=== PATIENT | male | born 1950 | race Caucasian/White ===

== ENCOUNTER → 2018-09-12 08:19 | Outpatient (CLI) | payer MEDICARE | END | disposition home or self-care (01) | LOC: D.CT 08:19 | PROVIDERS: Internal Medicine Gastroenterology | DX: R11.0 Nausea (principal); R63.4 Abnormal weight loss; J44.9 Chronic obstructive pulmonary disease, unspecified; R12 Heartburn ==

== ENCOUNTER 2019-01-11 09:15 | Inpatient (IN) | payer OTHER, MEDICARE ==
[2019-01-11] VITALS (7 sets, daily range): BP systolic 78–134; BP diastolic 41–76; BMI 21.4; BMI 21.5
[2019-01-11] MEDS ORDERED: LIPITOR80 MG PO (09:29)
[2019-01-11] MEDS ORDERED: ALBUTEROL SULF8.5 GM INH (09:29)
[2019-01-11] MEDS ORDERED: WELLBUTRIN SR150 MG PO (09:30)
[2019-01-11] MEDS ORDERED: SYMBICORT 16010.2 GM INH (09:30)
[2019-01-11] MEDS ORDERED: DEPAKOTE ER500 MG PO (09:31)
[2019-01-11] MEDS ORDERED: LISINOPRIL5 MG PO (09:31)
[2019-01-11] MEDS ORDERED: TRICOR145 MG PO (09:31)
[2019-01-11] MEDS ORDERED: FLOMAX0.4 MG PO (09:32)
[2019-01-11] MEDS ORDERED: NIASPAN500 MG PO (09:32)
[2019-01-11] MEDS ORDERED: MIRALAX17 GM PO (09:32)
[2019-01-11] MEDS ORDERED: ASPIRIN325 MG PO (09:33)
[2019-01-11] MEDS ORDERED: TRAZODONE HCL150 MG PO (09:33)
[2019-01-11] MEDS ORDERED: FERROUS SULFAT325 MG PO (09:34)
[2019-01-11] MEDS ORDERED: SOMA350 MG PO (09:34)
[2019-01-11 09:47] LABS: APPEARANCE CLEAR (CLEAR); BILIRUBIN NEGATIVE (NEGATIVE); COLOR YELLOW (YELLOW); GLUCOSE NEGATIVE (NEGATIVE); KETONE NEGATIVE (NEGATIVE); NITRITE NEGATIVE (NEGATIVE); PROTEIN NEGATIVE (NEGATIVE); UROBILINOGEN NORMAL (NORMAL)
[2019-01-11 09:50] LABS: BASOPHILS 0.6 % (0-2); EOSINOPHILS 4.7 % (0-7); HEMATOCRIT 37.8 % (42.0-54.0); HEMOGLOBIN 12.7 g/dL (13.5-17.5); IMMATURE GRANULOCYTES 0.4 % (0-5); LYMPHOCYTES 32.5 % (15-50); MCHC 33.6 g/dL (31.0-37.0); MCV 89.4 fL (80.0-100.0); MEAN PLATELET VOLUME 9.9 fL (7.4-10.4); MONOCYTES 8.4 % (2-11); NEUTROPHILS 53.4 % (40-80); PLATELET COUNT 276 10x3/uL (130-400); RBC 4.23 10x6/uL (4.20-6.10); RDW 14.1 % (11.5-14.5)
[2019-01-11 10:08] LABS: APTT 28.4 SECONDS (22.8-39.4); INR 1.08 (0.85-1.17); PROTIME 13.5 SECONDS (11.6-15.0)
[2019-01-11 10:14] LABS: ALBUMIN 2.6 g/dL (3.4-5.0); ALKALINE PHOSPHATASE 57 U/L (46-116); ALT (SGPT) 24 U/L (10-68); BILIRUBIN - TOTAL 0.23 mg/dL (0.2-1.3); CALC OSMOLALITY 259 mosm/kg (275-300); CALCIUM 8.5 mg/dL (8.5-10.1); CARBON DIOXIDE 25.7 mmol/L (21.0-32.0); CHLORIDE - SERUM 96 mmol/L (98-107); CREATININE - SERUM 0.8 mg/dL (0.6-1.3); GLUCOSE 159 mg/dL (74-106); PROTEIN - SERUM 7.8 g/dL (6.4-8.2); SODIUM 128 mmol/L (136-145); UREA NITROGEN 12 mg/dL (7-18); eGFR NON AFRICAN AMERICAN > 90 mL/min (90-120)
--- NOTE | 2019-01-11 10:16 | NUR ---
PT PRESENTS TO ER VIA PRIVATE VEHICLE WITH AND GRANDSON - PT REPORTS GRADUAL DECLINE IN FUNCTION OVER THE LAST TWO WEEKS. SHE STATES, "THIS MORNING HE WOKE UP AND HIS RIGHT EYE WAS BLACK AND HE JUST DIDN'T SEEM LIKE HIMSELF. HE WAS VERY CONFUSED." PT IS UNABLE TO REPORT LAST KNOWN WELL TIME. ON ASSESSMENT PT PUPILS ARE SLUGGISH AT 2MM BILATERALLY EQUAL - PT IS AN AKA TO LEFT LEG - NO DRIFT NOTED TO BILATERAL UPPER OR LOWER EXTREMITIES - PT IS AAOX4 - FAMILY AT BEDSIDE
[2019-01-11 10:18] LABS: TROPONIN-I < 0.017 ng/mL (0.000-0.060)
--- NOTE | 2019-01-11 11:47 | NUR ---
[facility] BE [facility]ITTED TO [facility] FACILITY DUE TO [facility]IL [facility]. SARA BEASLEY RN, CCM
--- NOTE | 2019-01-11 12:39 | NUR ---
pt hypotensive. Arouses to verbal stimuli - pt sat upright in high fowlers position - remains hypotensive - reported to dr kumar - verbal order received to bolus noraml saline - FSBS 93 @ 1229
--- NOTE | 2019-01-11 13:26 | NUR ---
NS bolus stopped at 1320
[2019-01-11] MEDS ORDERED: OMEPRAZOLE20 M1 PO (14:14)
--- NOTE | 2019-01-11 14:29 | MORECARE ---
CASE MANAGEMENT DISCHARGE SUMMARY PATIENT: GREG WITT W UNIT: [id number] ADM DATE: 01/11/19 AGE: 68 : 50 SEX: M ROOM/BED: D.1211 AUTHOR: DELMER UMAÑA PHYSICIAN: REFERRING PHYSICIAN: MICHEL VICK MD DATE OF SERVICE: 01/11/19 Discharge Plan Patient Name: GREG WITT Facility: [facility]:[place] : 1950 Planned Disposition: Home Anticipated Discharge Date: 01/15/19 Discharge Date: Expected LOS: 4 Initial Reviewer: [email or web address] Initial Review Date: 01/11/2019 Generated: 01/11/19 3:29 pm DCPIA - Discharge Planning Initial Assessment Updated by [email or web address]: tSephanie Rich on 01/11/19 2:25 pm * Is the patient Alert and Oriented? No * How many steps to enter\exit or inside your home? none * [place] [facility] * Preadmission Environment Home with Family * ADLs Partial Dependent * Partial ADLs (Assistance needed) Bathing Dressing Medication Management Transfers * Equipment Glucometer Oxygen Power Chair or Electric Scooter * Other Equipment O2 with portability. Is wanting a different kind of portable O2. * List name and contact numbers for known caregivers / representatives who currently or will assist patient after discharge: Gloria Witt - - [phone] * Verbal permission to speak to the caregivers and representatives has been obtained from the patient. Yes * Community resources currently utilized None * Additional services required to return to the preadmission environment? Yes * Can the patient safely return to the preadmission environment? Yes * Has this patient been hospitalized within the prior 30 days at any hospital? No Patient Name: GREG WITT Page [id number] at 1429 All edits/amendments must be made on the electronic document DICTATION DATE: 01/11/191427 ELECTRONICS ENGINEERING MANAGER: ALEJANDRA 01/11/191427 RPT#: [id number] DC DATE: STATUS: ADM IN [address] [place] [address] END OF REPORT
--- NOTE | 2019-01-11 14:39 | MORECARE ---
CASE MANAGEMENT DISCHARGE SUMMARY PATIENT: GREG WITT UNIT: [id number] ADM DATE: 01/11/19 AGE: 68 : 50 SEX: M ROOM/BED: D.1211 AUTHOR: DELMER UMAÑA PHYSICIAN: REFERRING PHYSICIAN: MICHEL VICK MD DATE OF SERVICE: 01/11/19 Discharge Plan Patient Name: GREG WITT Facility: [facility]:[place] : 1950 Planned Disposition: Home Anticipated Discharge Date: 01/15/19 Discharge Date: Expected LOS: 4 Initial Reviewer: [email or web address] Initial Review Date: 01/11/2019 Generated: 01/11/19 3:39 pm DCP- Discharge Planning Updated by [email or web address]: Stephanie Rich on 01/11/19 1:[address] Patient Name: GREG WITT Admission Status: ER Accout number: [id number] Admission Date: 01-11-2019 : 1950 Admission Diagnosis: Attending: MICHEL VICK Current LOS: 1 Anticipated DC Date: 01-15-2019 Planned Disposition: Home Primary Insurance: MEDICARE A & B Discharge Planning Comments: CM met with patient and his , Gloria to complete initial dc planning assessment. CM educated them on the CM role and verbal consent given by patient to complete assessment. Patient with altered mental status so answered questions. CM verified patient's address, phone number, and emergency contact phone numbers. Patient lives at home with his who is his primary caregiver. Patient is bed/chair bound but was able to transfer himself from bed to chair. At discharge patient's is not sure what will be needed. She is hopeful he improves to where he can return home and feels this would be a safe discharge. CM discussed availability of home health, rehab services, and medical equipment. Patient's is unsure of what discharge needs he will have at this time. She did mention that she is wanting a different kind of portable oxygen when he is discharged. She is going to call [facility] to see exactly what she is wanting and let CM know. Patient's reports she will transport him home at time of discharge if he is able to return home. CM will continue to follow and will assist as needed with dc plans/needs. Division Chief: Stephanie Rich RN, [facility] DCPIA - Discharge Planning Initial Assessment Updated by [email or web address]: Stephanie Rich on 01/11/19 2:25 pm * Is the patient Alert and Oriented? No * How many steps to enter\exit or inside your home? none * [place] [facility] * P[place]mission Environment Home with Family * ADLs Partial Dependent * Partial ADLs (Assistance needed) Bathing Dressing Medication Management Transfers * Equipment Glucometer Oxygen Power Chair or Electric Scooter * Other Equipment O2 with portability. Is wanting a different kind of portable O2. * List name and contact numbers for known caregivers / representatives who currently or will assist patient after discharge: Gloria Witt - - [phone] * Verbal permission to speak to the caregivers and representatives has been obtained from the patient. Yes * Community resources currently utilized None * Additional services required to return to the preadmission environment? Yes * Can the patient safely return to the preadmission environment? Yes * Has this patient been hospitalized within the prior 30 days at any hospital? No Last DP export: 01/11/19 1:29 p Patient Name: GREG WITT Page [id number] at 1439 All edits/amendments must be made on the electronic document DICTATION DATE: 01/11/191438 SUPERVISOR CELL ROOM: ALEJANDRA 01/11/191438 RPT#: [id number] DC DATE: STATUS: ADM IN [facility] [address] [place] [address] END OF REPORT
[2019-01-11 16:32] LABS: CHOL - HDL RATIO 3.2 ratio (2.3-4.9); LDL-HDL RATIO 1.3 ratio (1.5-3.5)
--- NOTE | 2019-01-11 17:05 | NUR ---
Rehab Note- Acute Inpatient Rehab prescreen order received. The patient has an appropriate acute inpatient rehab Dx, continues to have an acute work up. Will follow at this time. Thank you for this referral! Carrie Connors RN Clinical Liaison, [facility] Rehab
--- NOTE | 2019-01-11 20:01 | NUR ---
EVENING ROUNDS MADE. PT LAYING IN BED. DENIES NEEDS AT THIS TIME. BREATHING EVEN AND UNLABORED. FALL PRECAUTIONS IN PLACE. WILL CTM.
--- NOTE | 2019-01-11 20:02 | NUR ---
PT GETTING US IN AT THIS TIME.
--- NOTE | 2019-01-11 20:51 | NUR ---
PT CL LIGHT ON. UPON ENTERING PT ROOM PT IV TO L WRIST OUT, TIP INTACT. CLEANED PT UP, WILL ATTEMPT TO RESITE IV. NO FURTHER CONCNERS AT THIS TIME. WILL CTM.
--- NOTE | 2019-01-11 21:02 | NUR ---
VITALS STABLE. PT TOOK MEDS WHOLE WITHOUT DIFFICULTY. NO FURTHER CONCERNS OR COMPLAINTS AT THIS TIME. WILL CTM.
[2019-01-11 23:08] LABS: APPEARANCE CLEAR (CLEAR); BILIRUBIN NEGATIVE (NEGATIVE); COLOR YELLOW (YELLOW); GLUCOSE NEGATIVE (NEGATIVE); KETONE NEGATIVE (NEGATIVE); NITRITE NEGATIVE (NEGATIVE); PROTEIN NEGATIVE (NEGATIVE); UROBILINOGEN NORMAL (NORMAL)
[2019-01-11 23:15] LABS: UDS - AMPHET NEGATIVE QUAL (NEGATIVE); UDS - BARB NEGATIVE QUAL (NEGATIVE); UDS - BENZO NEGATIVE QUAL (NEGATIVE); UDS - COCAINE NEGATIVE QUAL (NEGATIVE); UDS - OPIATE NEGATIVE QUAL (NEGATIVE); UDS - PCP NEGATIVE QUAL (NEGATIVE); UDS - THC POSITIVE QUAL (NEGATIVE)
--- NOTE | 2019-01-12 03:06 | NUR ---
PT LAYING IN BED RESTING COMFORTABLY AT THIS TIME. DENIES FURTHER NEEDS. BREATHING EVEN AND UNLABORED. 2L 02 VIA NC. NO FURTHER NEEDS, FALL PRECAUTIONS IN PLACE. BED LOWERED AND LOCKED. CL IN REACH. WILL CTM.
--- NOTE | 2019-01-12 05:34 | NUR ---
I AGREE WITH SHEAR TENDER ASSESSMENT.
[2019-01-12 05:42] VITALS: BP 132/97
[2019-01-12 06:39] LABS: ALBUMIN 2.6 g/dL (3.4-5.0); ALKALINE PHOSPHATASE 48 U/L (46-116); ALT (SGPT) 20 U/L (10-68); BILIRUBIN - TOTAL 0.27 mg/dL (0.2-1.3); CALC OSMOLALITY 251 mosm/kg (275-300); CALCIUM 8.2 mg/dL (8.5-10.1); CARBON DIOXIDE 24.7 mmol/L (21.0-32.0); CHLORIDE - SERUM 96 mmol/L (98-107); CREATININE - SERUM 0.9 mg/dL (0.6-1.3); MAGNESIUM - SERUM 1.7 mg/dL (1.8-2.4); PROTEIN - SERUM 7.3 g/dL (6.4-8.2); SODIUM 126 mmol/L (136-145); UREA NITROGEN 10 mg/dL (7-18); eGFR NON AFRICAN AMERICAN 89 mL/min (90-120)
[2019-01-12 06:46] LABS: GLUCOSE 90 mg/dL (74-106)
--- NOTE | 2019-01-12 07:45 | NUR ---
REC'D IN BED AWAKE AND ALERT. RESP EVEN AND UNLABORED WITH NO DISTRESS NOTED. CAN EXPRESS NEEDS AND WANTS. DENIES ANY PAIN OR DISCOMFORT. ASSESSMENT COMPLETD. C/L IN REACH AT BEDSIDE.
[2019-01-12 07:48] LABS: BASOPHILS 0.5 % (0-2); EOSINOPHILS 9.2 % (0-7); HEMATOCRIT 36.3 % (42.0-54.0); HEMOGLOBIN 12.1 g/dL (13.5-17.5); IMMATURE GRANULOCYTES 0.4 % (0-5); LYMPHOCYTES 34.6 % (15-50); MCH 29.4 pg (26.0-34.0); MCHC 33.3 g/dL (31.0-37.0); MCV 88.3 fL (80.0-100.0); MEAN PLATELET VOLUME 10.2 fL (7.4-10.4); NEUTROPHILS 46.3 % (40-80); PLATELET COUNT 277 10x3/uL (130-400); RBC 4.11 10x6/uL (4.20-6.10); RDW 13.9 % (11.5-14.5); WBC 5.7 10x3/uL (4.8-10.8)
--- NOTE | 2019-01-12 10:40 | MORECARE ---
CASE MANAGEMENT DISCHARGE SUMMARY PATIENT: GREG WITT UNIT: [id number] ADM DATE: 01/11/19 AGE: 68 : 50 SEX: M ROOM/BED: D.1211 AUTHOR: DELMER UMAÑA PHYSICIAN: REFERRING PHYSICIAN: MICHEL VICK MD DATE OF SERVICE: 01/12/19 Discharge Plan Patient Name: GREG WITT Facility: [facility]:[place] : 1950 Planned Disposition: Home Anticipated Discharge Date: 01/15/19 Discharge Date: Expected LOS: 4 Initial Reviewer: [email or web address] Initial Review Date: 01/11/2019 Generated: 01/12/19 11:39 am Comments DCP- Discharge Planning Updated by [email or web address]: Isabell Restrepo on 01/12/19 9:[address] SPEECH EVAL, PHYSICAL THERAPY EVAL, OT EVAL HAVE BEEN COMPLETED. RECOMMENDATION VARIES. PREFERS REHAB. PATIENT DESIRES HOME. RECENT HX OF FALLS ON TRANSFERS AT HOME. REHAB PRESCREEN PENDING. OT RECOMMENDS -REHAB PHYSICAL THERAPY RECOMMENDS HOME. AWIT REHAB SCREEN. DCP- Discharge Planning Updated by [email or web address]: Stephanie Rich on 01/11/19 1:[address] Patient Name: GREG WITT Admission Status: ER Accout number: [id number] Admission Date: 01-11-2019 : 1950 Admission Diagnosis: Attending: MICHEL VICK Current LOS: 1 Anticipated DC Date: 01-15-2019 Planned Disposition: Home Primary Insurance: MEDICARE A & B Discharge Planning Comments: CM met with patient and his , Gloria to complete initial dc planning assessment. CM educated them on the CM role and verbal consent given by patient to complete assessment. Patient with altered mental status so answered questions. CM verified patient's address, phone number, and emergency contact phone numbers. Patient lives at home with his who is his primary caregiver. Patient is bed/chair bound but was able to transfer himself from bed to chair. At discharge patient's is not sure what will be needed. She is hopeful he improves to where he can return home and feels this would be a safe discharge. CM discussed availability of home health, rehab services, and medical equipment. Patient's is unsure of what discharge needs he will have at this time. She did mention that she is wanting a different kind of portable oxygen when he is discharged. She is going to call [facility] to see exactly what she is wanting and let CM know. Patient's reports she will transport him home at time of discharge if he is able to return home. CM will continue to follow and will assist as needed with dc plans/needs. Casting Molder: Stephanie Rich RN, [facility] DCPIA - Discharge Planning Initial Assessment Updated by [email or web address]: Stephanie Rich on 01/11/19 2:25 pm * Is the patient Alert and Oriented? No * How many steps to enter\exit or inside your home? none * [place]CP [place] [facility] [place] [facility] * Preadmission Environment Home with Family * ADLs Partial Dependent * Partial ADLs (Assistance needed) Bathing Dressing Medication Management Transfers * Equipment Glucometer Oxygen Power Chair or Electric Scooter * Other Equipment O2 with portability. Is wanting a different kind of portable O2. * List name and contact numbers for known caregivers / representatives who currently or will assist patient after discharge: Gloria Witt - - [phone] * Verbal permission to speak to the caregivers and representatives has been obtained from the patient. Yes * Community resources currently utilized None * Additional services required to return to the preadmission environment? Yes * Can the patient safely return to the preadmission environment? Yes * Has this patient been hospitalized within the prior 30 days at any hospital? No Last DP export: 01/11/19 1:39 p Patient Name: GREG WITT Page [id number] at 1040 All edits/amendments must be made on the electronic document DICTATION DATE: 01/12/19 1039 HAIRSPRING TRUING INSPECTOR: ALEJANDRA 01/12/19 1039 RPT#: [id number] CT DATE: STATUS: ADM IN [facility] [address] [place] [address] END OF REPORT
--- NOTE | 2019-01-12 13:28 | NUR ---
Visited with patient today regarding the rehab referral. He meets criteria and will be accepted if he decides to come. He wants to discuss it with his before making a descision. Discussed with the CM Isabell Restrepo RN. Will accept today if patient and physician agree. Simona Cutler RN Clinical Liaison, Rehab
[2019-01-12] MEDS ORDERED: PLAVIX75 MG PO (17:07)
--- NOTE | 2019-01-12 17:16 | NUR ---
DC OSVALDO VOICE UNDERSTANDING OF DC INSTRUCTION FAMILY WAS AT BEDSIDE. STABLE CONDITION UPON DEPARTURE.
--- NOTE | 2019-01-12 17:50 | MORECARE ---
CASE MANAGEMENT DISCHARGE SUMMARY PATIENT: GREG WITT UNIT: [id number] ADM DATE: 01/11/19 AGE: 68 : 50 SEX: M ROOM/BED: D.1211 AUTHOR: DELMER UMAÑA PHYSICIAN: REFERRING PHYSICIAN: MICHEL VICK MD DATE OF SERVICE: 01/12/19 Discharge Plan Patient Name: GREG WITT Facility: [facility]:[place] : 1950 Planned Disposition: Home Anticipated Discharge Date: 01/15/19 Discharge Date: 01/12/2019 Expected LOS: 4 Initial Reviewer: [email or web address] Initial Review Date: 01/11/2019 Generated: 01/12/19 6:50 pm Comments DCP- Discharge Planning Updated by [email or web address]: Isabell Restrepo on 01/12/19 9:[address] SPEECH EVAL, PHYSICAL THERAPY EVAL, OT EVAL HAVE BEEN COMPLETED. RECOMMENDATION VARIES. PREFERS REHAB. PATIENT DESIRES HOME. RECENT HX OF FALLS ON TRANSFERS AT HOME. REHAB PRESCREEN PENDING. OT RECOMMENDS -REHAB PHYSICAL THERAPY RECOMMENDS HOME. AWIT REHAB SCREEN. DCP- Discharge Planning Updated by [email or web address]: Stephanie Rich on 01/11/19 1:[address] Patient Name: GREG WITT Admission Status: ER Accout number: [id number] Admission Date: 01-11-2019 : 1950 Admission Diagnosis: Attending: MICHEL VICK Current LOS: 1 Anticipated DC Date: 01-15-2019 Planned Disposition: Home Primary Insurance: MEDICARE A & B Discharge Planning Comments: CM met with patient and his , Gloria to complete initial dc planning assessment. CM educated them on the CM role and verbal consent given by patient to complete assessment. Patient with altered mental status so answered questions. CM verified patient's address, phone number, and emergency contact phone numbers. Patient lives at home with his who is his primary caregiver. Patient is bed/chair bound but was able to transfer himself from bed to chair. At discharge patient's is not sure what will be needed. She is hopeful he improves to where he can return home and feels this would be a safe discharge. CM discussed availability of home health, rehab services, and medical equipment. Patient's is unsure of what discharge needs he will have at this time. She did mention that she is wanting a different kind of portable oxygen when he is discharged. She is going to call [facility] to see exactly what she is wanting and let CM know. Patient's reports she will transport him home at time of discharge if he is able to return home. CM will continue to follow and will assist as needed with dc plans/needs. Perch Mender: Stephanie Rich RN, [facility] DCPIA - Discharge Planning Initial Assessment Updated by [email or web address]: Stephanie Rich on 01/11/19 2:25 pm * Is the patient Alert and Oriented? No * How many steps to enter\exit or inside your home? none * [facility]CP [place] [facility] * [facility] * Preadmission Environment Home with Family * ADLs Partial Dependent * Partial ADLs (Assistance needed) Bathing Dressing Medication Management Transfers * Equipment Glucometer Oxygen Power Chair or Electric Scooter * Other Equipment O2 with portability. Is wanting a different kind of portable O2. * List name and contact numbers for known caregivers / representatives who currently or will assist patient after discharge: Gloria Witt - - [phone] * Verbal permission to speak to the caregivers and representatives has been obtained from the patient. Yes * Community resources currently utilized None * Additional services required to return to the preadmission environment? Yes * Can the patient safely return to the preadmission environment? Yes * Has this patient been hospitalized within the prior 30 days at any hospital? No Last DP export: 01/12/19 9:40 a Patient Name: GREG WITT Page [id number] at 1750 All edits/amendments must be made on the electronic document DICTATION DATE: 01/12/191749 ELEMENTARY SCHOOL BAND DIRECTOR: ALEJANDRA 01/12/19 175 RPT#: [id number] DC DATE:01/12/19 STATUS: DIS IN [facility] [address] [place] [address] END OF REPORT
--- NOTE | 2019-01-12 18:06 | MORECARE ---
CASE MANAGEMENT DISCHARGE SUMMARY PATIENT: GREG WITT UNIT: [id number] ADM DATE: 01/11/19 AGE: 68 : 50 SEX: M ROOM/BED: D.1211 AUTHOR: DELMER UMAÑA PHYSICIAN: REFERRING PHYSICIAN: MICHEL VICK MD DATE OF SERVICE: 01/12/19 Discharge Plan Patient Name: GREG WITT Facility: [facility]:[place] : 1950 Planned Disposition: Home Anticipated Discharge Date: 01/15/19 Discharge Date: 01/12/2019 Expected LOS: 4 Initial Reviewer: [email or web address] Initial Review Date: 01/11/2019 Generated: 01/12/19 7:05 pm Comments DCP- Discharge Planning Updated by [email or web address]: Isabell Restrepo on 01/12/19 4:[address] 1200 REHAB PRESCREEN WAS COMPLETED THIS PM BY NIKOLE OLMEDO AND ROBERTO. PATIENT WAS APPROPRIATE FOR ACUTE REHAB. HE WANTED TO DISCUSS WITH HIS . SPOKE WITH HIS WHEN SHE ARRIVE THIS PM. THEY DECIDED THEY DID NOT WANT REHAB. THE PRIMARY NURSE NOTIFIED REHAB. CM SPOKE WITH THE . SHE WANTS HIS SERVICES THRU THE [place]. SHE ALSO HAD ISSUE REGARDING HIS HOME OXYGEN THERAPY. SHE PLANS TO FOLLOW UP WITH DR MOHR. TC TO [facility]. SHE STATED SHE WOULD HAVE THE RESPIRATORY THERAPIST FOLLOW UP WITH THE FOR HER CONCERNS. TC TO DR MOHR OFFICE TO ADVISE OF ADMISSION AND DISCHARGE. SPOKE WITH [facility]. FAXED CLINICAL INFORMATION , DISCHARGE MEDS, IMAGING STUDIES, LABS H/P AND ER NOTE TO [phone]. TC TO [facility] TO OBTAIN IMAGING DISC. PAPERWORK PREPARED FOR [facility]. EXPLAINED TO TO TAKE DISC TO [facility] OFFICE WITH DISCHARGE SUMMARY. CM WILL FAX CLINICAL AND REQUEST FOR HOME HEALTH FOR PHYSICAL THERAPY. CM ALSO PROVIDED CONTACT PHONE NUMBER FOR PATIENT [employer] FOR ISSUES RELATED TO OXYGEN, HOME HEALTH AND REHAB SERVICES. DISC GIVEN TO THE . DISCHARGE PATIENT SUMMARY AND DISCHARGE MED LIST GIVEN TO THE . FAMILY IS PROVIDING TRANSPORTATION. PATIENT AND FAMILY ANXIOUS FOR DISCHARGE. DCP- Discharge Planning Updated by [email or web address]: Isabell Restrepo on 01/12/19 9:[address] SPEECH EVAL, PHYSICAL THERAPY EVAL, OT EVAL HAVE BEEN COMPLETED. RECOMMENDATION VARIES. PREFERS REHAB. PATIENT DESIRES HOME. RECENT HX OF FALLS ON TRANSFERS AT HOME. REHAB PRESCREEN PENDING. OT RECOMMENDS -REHAB PHYSICAL THERAPY RECOMMENDS HOME. AWIT REHAB SCREEN. DCP- Discharge Planning Updated by [id number]: Stephanie Rich on 01/11/19 1:[address] Patient Name: GREG WITT Admission Status: ER Accout number: [id number] Admission Date: 01-11-2019 : 1950 Admission Diagnosis: Attending: MICHEL VICK Current LOS: 1 Anticipated DC Date: 01-15-2019 Planned Disposition: Home Primary Insurance: MEDICARE A & B Discharge Planning Comments: CM met with patient and his , Gloria to complete initial dc planning assessment. CM educated them on the CM role and verbal consent given by patient to complete assessment. Patient with altered mental status so answered questions. CM verified patient's address, phone number, and emergency contact phone numbers. Patient lives at home with his who is his primary caregiver. Patient is bed/chair bound but was able to transfer himself from bed to chair. At discharge patient's is not sure what will be needed. She is hopeful he improves to where he can return home and feels this would be a safe discharge. CM discussed availability of home health, rehab services, and medical equipment. Patient's is unsure of what discharge needs he will have at this time. She did mention that she is wanting a different kind of portable oxygen when he is discharged. She is going to call [facility] to see exactly what she is wanting and let CM know. Patient's reports she will transport him home at time of discharge if he is able to return home. CM will continue to follow and will assist as needed with dc plans/needs. Jewelry Drilling Machine Operator: Stephanie Rich RN, [facility] DCPIA - Discharge Planning Initial Assessment Updated by [email or web address]: Stephanie Rich on 01/11/19 2:25 pm * Is the patient Alert and Oriented? No * How many steps to enter\exit or inside your home? none * PCP [place] * [facility] * Preadmission Environment Home with Family * ADLs Partial Dependent * Partial ADLs (Assistance needed) Bathing Dressing Medication Management Transfers * Equipment Glucometer Oxygen Power Chair or Electric Scooter * Other Equipment O2 with portability. Is wanting a different kind of portable O2. * List name and contact numbers for known caregivers / representatives who currently or will assist patient after discharge: Gloria Witt - - [phone] * Verbal permission to speak to the caregivers and representatives has been obtained from the patient. Yes * Community resources currently utilized None * Additional services required to return to the preadmission environment? Yes * Can the patient safely return to the preadmission environment? Yes * Has this patient been hospitalized within the prior 30 days at any hospital? No Last DP export: 01/12/19 4:50 p Patient Name: GREG WITT Page [id number] at 1806 All edits/amendments must be made on the electronic document DICTATION DATE: 01/12/191804 MINE EXPLORATION ENGINEER: ALEJANDRA 01/12/191804 RPT#: [id number] DC DATE:01/12/19 STATUS: DIS IN [facility] [address] [place] [address] END OF REPORT
--- NOTE | 2019-01-13 07:52 | MORECARE ---
CASE MANAGEMENT DISCHARGE SUMMARY PATIENT: GREG WITT UNIT: [id number] ADM DATE: 01/11/19 AGE: 68 : 50 SEX: M ROOM/BED: D.1211 AUTHOR: DELMER UMAÑA PHYSICIAN: REFERRING PHYSICIAN: MICHEL VICK MD DATE OF SERVICE: 01/13/19 Discharge Plan Patient Name: GREG WITT Facility: [facility]:[place] : 1950 Planned Disposition: Home Anticipated Discharge Date: 01/15/19 Discharge Date: 01/12/2019 Expected LOS: 4 Initial Reviewer: [email or web address] Initial Review Date: 01/11/2019 Generated: 01/13/19 8:51 am Comments DCP- Discharge Planning Updated by [email or web address]: Isabell Restrepo on 01/12/19 4:[address] 1200 REHAB PRESCREEN WAS COMPLETED THIS PM BY NIKOLE OLMEDO AND ROBERTO. PATIENT WAS APPROPRIATE FOR ACUTE REHAB. HE WANTED TO DISCUSS WITH HIS . SPOKE WITH HIS WHEN SHE ARRIVE THIS PM. THEY DECIDED THEY DID NOT WANT REHAB. THE PRIMARY NURSE NOTIFIED REHAB. CM SPOKE WITH THE . SHE WANTS HIS SERVICES THRU THE [place]. SHE ALSO HAD ISSUE REGARDING HIS HOME OXYGEN THERAPY. SHE PLANS TO FOLLOW UP WITH DR MOHR. TC TO [facility]. SHE STATED SHE WOULD HAVE THE RESPIRATORY THERAPIST FOLLOW UP WITH THE FOR HER CONCERNS. TC TO DR MOHR OFFICE TO ADVISE OF ADMISSION AND DISCHARGE. SPOKE WITH CHANDRAKANT. FAXED CLINICAL INFORMATION , DISCHARGE MEDS, IMAGING STUDIES, LABS H/P AND ER NOTE TO [phone]. TC TO [facility] IM[facility] TO OBTAIN IMAGING DISC. [facility] FOR [facility]. EXPLAINED TO TO TAKE DISC TO [facility] OFFICE WITH DISCHARGE SUMMARY. CM WILL FAX CLINICAL AND REQUEST FOR HOME HEALTH FOR PHYSICAL THERAPY. CM ALSO PROVIDED CONTACT PHONE NUMBER FOR PATIENT [employer] FOR ISSUES RELATED TO OXYGEN, HOME HEALTH AND REHAB SERVICES. DISC GIVEN TO THE . DISCHARGE PATIENT SUMMARY AND DISCHARGE MED LIST GIVEN TO THE . FAMILY IS PROVIDING TRANSPORTATION. PATIENT AND FAMILY ANXIOUS FOR DISCHARGE. DCP- Discharge Planning Updated by [email or web address]: Isabell Restrepo on 01/12/19 9:[address] SPEECH EVAL, PHYSICAL THERAPY EVAL, OT EVAL HAVE BEEN COMPLETED. RECOMMENDATION VARIES. PREFERS REHAB. PATIENT DESIRES HOME. RECENT HX OF FALLS ON TRANSFERS AT HOME. REHAB PRESCREEN PENDING. OT RECOMMENDS -REHAB PHYSICAL THERAPY RECOMMENDS HOME. AWIT REHAB SCREEN. DCP- Discharge Planning Updated by [id number]: Stephanie Rich on 01/11/19 1:[address] Patient Name: GREG WITT Admission Status: ER Accout number: [id number] Admission Date: 01-11-2019 : 1950 Admission Diagnosis: Attending: MICHEL VICK Current LOS: 1 Anticipated DC Date: 01-15-2019 Planned Disposition: Home Primary Insurance: MEDICARE A & B Discharge Planning Comments: CM met with patient and his , Gloria to complete initial dc planning assessment. CM educated them on the CM role and verbal consent given by patient to complete assessment. Patient with altered mental status so answered questions. CM verified patient's address, phone number, and emergency contact phone numbers. Patient lives at home with his who is his primary caregiver. Patient is bed/chair bound but was able to transfer himself from bed to chair. At discharge patient's is not sure what will be needed. She is hopeful he improves to where he can return home and feels this would be a safe discharge. CM discussed availability of home health, rehab services, and medical equipment. Patient's is unsure of what discharge needs he will have at this time. She did mention that she is wanting a different kind of portable oxygen when he is discharged. She is going to call [facility] to see exactly what she is wanting and let CM know. Patient's reports she will transport him home at time of discharge if he is able to return home. CM will continue to follow and will assist as needed with dc plans/needs. Oliver Filter Operator: Stephanie Rich RN, [facility] DCPIA - Discharge Planning Initial Assessment Updated by [email or web address]: Stephanie Rich on 01/11/19 2:25 pm * Is the patient Alert and Oriented? No * How many steps to enter\exit or inside your home? none * PCP [place] * Pharmacy [place] [facility] * Preadmission Environment Home with Family * ADLs Partial Dependent * Partial ADLs (Assistance needed) Bathing Dressing Medication Management Transfers * Equipment Glucometer Oxygen Power Chair or Electric Scooter * Other Equipment O2 with portability. Is wanting a different kind of portable O2. * List name and contact numbers for known caregivers / representatives who currently or will assist patient after discharge: Gloria Witt - - [phone] * Verbal permission to speak to the caregivers and representatives has been obtained from the patient. Yes * Community resources currently utilized None * Additional services required to return to the preadmission environment? Yes * Can the patient safely return to the preadmission environment? Yes * Has this patient been hospitalized within the prior 30 days at any hospital? No Last DP export: 01/12/19 5:05 p Patient Name: GREG WITT Page [id number] at 0752 All edits/amendments must be made on the electronic document DICTATION DATE: 01/13/19750 HAND DEICER ELEMENT WINDER: ALEJANDRA 01/13/19750 RPT#: [id number] DC DATE:01/12/19 STATUS: DIS IN [facility] [address] [place] [address] END OF REPORT
--- NOTE | 2019-01-15 10:06 | MORECARE ---
CASE MANAGEMENT DISCHARGE SUMMARY PATIENT: GREG WITT UNIT: [id number] ADM DATE: 01/11/19 AGE: 68 : 50 SEX: M ROOM/BED: D.1211 AUTHOR: DELMER UMAÑA PHYSICIAN: REFERRING PHYSICIAN: MICHEL VICK MD DATE OF SERVICE: 01/15/19 Discharge Plan Patient Name: GREG WITT Facility: [facility]:[place] : 1950 Planned Disposition: Home Anticipated Discharge Date: 01/15/19 Discharge Date: 01/12/2019 Expected LOS: 4 Initial Reviewer: [email or web address] Initial Review Date: 01/11/2019 Generated: 01/15/19 11:05 am Comments DCP- Discharge Planning Updated by [email or web address]: Isabell Restrepo on 01/15/19 8:[address] [facility] FA[facility]ED CLINICAL,DISCHARGE MEDS AND REQUEST FOR HOME HEALTH SERVICES. TELEPHONED THE PATIENT. SPOKE TO HIS TO ADVISE THE [facility] AND DR HUERTA' OFFICE HAD HIS CLINICAL INFORMATION. REMINDED HER TO TAKE HIS DISC TO [place] WHEN HE IS SEEN. SHE STATES SHE WILL CALL THIS AFTERNOON TO MAKE APPOINTMENTS W/ [facility] AND DR MOHR DCP- Discharge Planning Updated by [email or web address]: Isabell Restrepo on 01/12/19 4:[address] 1200 REHAB PRESCREEN WAS COMPLETED THIS PM BY NIKOLE PORTILLO. PATIENT WAS APPROPRIATE FOR ACUTE REHAB. HE WANTED TO DISCUSS WITH HIS . SPOKE WITH HIS WHEN SHE ARRIVE THIS PM. THEY DECIDED THEY DID NOT WANT REHAB. THE PRIMARY NURSE NOTIFIED REHAB. SPOKE WITH THE . SHE [facility]. SHE ALSO HAD ISSUE REGARDING HIS HOME OXYGEN THERAPY. SHE PLANS TO FOLLOW UP WITH DR MOHR. TC TO [facility]. SHE STATED SHE WOULD HAVE THE RESPIRATORY THERAPIST FOLLOW UP WITH THE FOR HER CONCERNS. TC TO DR MOHR OFFICE TO ADVISE OF ADMISSION AND DISCHARGE. SPOKE WITH CHANDRAKANT. FAXED CLINICAL INFORMATION , DISCHARGE MEDS, IMAGING STUDIES, LABS H/P AND ER NOTE TO [phone]. TC TO [facility] IM[facility] TO OBTAIN IMAGING DISC. PAPERWORK PREPARED FOR [facility]. EXPLAINED TO TO TAKE DISC TO [facility] OFFICE WITH DISCHARGE SUMMARY. CM WILL FAX CLINICAL AND REQUEST FOR HOME HEALTH FOR PHYSICAL THERAPY. CM ALSO PROVIDED CONTACT PHONE NUMBER FOR PATIENT [employer] FOR ISSUES RELATED TO OXYGEN, HOME HEALTH AND REHAB SERVICES. DISC GIVEN TO THE . DISCHARGE PATIENT SUMMARY AND DISCHARGE MED LIST GIVEN TO THE . FAMILY IS PROVIDING TRANSPORTATION. PATIENT AND FAMILY ANXIOUS FOR DISCHARGE. DCP- Discharge Planning Updated by [email or web address]: Isabell Restrepo on 01/12/19 9:[address] SPEECH EVAL, PHYSICAL THERAPY EVAL, OT EVAL HAVE BEEN COMPLETED. RECOMMENDATION VARIES. PREFERS REHAB. PATIENT DESIRES HOME. RECENT HX OF FALLS ON TRANSFERS AT HOME. REHAB PRESCREEN PENDING. OT RECOMMENDS -REHAB PHYSICAL THERAPY RECOMMENDS HOME. AWIT REHAB SCREEN. DCP- Discharge Planning Updated by [email or web address]: Stephanie Hilario on 01/11/19 1:[address] Patient Name: GREG WITT Admission Status: ER Accout number: [id number] Admission Date: 01-11-2019 : 1950 Admission Diagnosis: Attending: MICHEL VICK Current LOS: 1 Anticipated DC Date: 01-15-2019 Planned Disposition: Home Primary Insurance: MEDICARE A & B Discharge Planning Comments: CM met with patient and his , Gloria to complete initial dc planning assessment. CM educated them on the CM role and verbal consent given by patient to complete assessment. Patient with altered mental status so answered questions. CM verified patient's address, phone number, and emergency contact phone numbers. Patient lives at home with his who is his primary caregiver. Patient is bed/chair bound but was able to transfer himself from bed to chair. At discharge patient's is not sure what will be needed. She is hopeful he improves to where he can return home and feels this would be a safe discharge. CM discussed availability of home health, rehab services, and medical equipment. Patient's is unsure of what discharge needs he will have at this time. She did mention that she is wanting a different kind of portable oxygen when he is discharged. She is going to call [facility] to see exactly what she is wanting and let CM know. Patient's reports she will transport him home at time of discharge if he is able to return home. CM will continue to follow and will assist as needed with dc plans/needs. Dianetic Counselor: Stephanie Rich RN, [facility] DCPIA - Discharge Planning Initial Assessment Updated by [email or web address]: Stephanie Rich on 01/11/19 2:25 pm * Is the patient Alert and Oriented? No * How many steps to enter\exit or inside your home? none * [facility] [place] [facility] * Preadmission Environment Home with Family * ADLs Partial Dependent * Partial ADLs (Assistance needed) Bathing Dressing Medication Management Transfers * Equipment Glucometer Oxygen Power Chair or Electric Scooter * Other Equipment O2 with portability. Is wanting a different kind of portable O2. * List name and contact numbers for known caregivers / representatives who currently or will assist patient after discharge: Gloria Witt - - [phone] * Verbal permission to speak to the caregivers and representatives has been obtained from the patient. Yes * Community resources currently utilized None * Additional services required to return to the preadmission environment? Yes * Can the patient safely return to the preadmission environment? Yes * Has this patient been hospitalized within the prior 30 days at any hospital? No Last DP export: 01/13/19 6:51 am Patient Name: GREG WITT Page [id number] at 1006 All edits/amendments must be made on the electronic document DICTATION DATE: 01/15/19 1005 CYBER INCIDENT ANALYST: ALEJANDRA 01/15/19 1005 RPT#: [id number] DC DATE:01/12/19 STATUS: DIS IN [place] [address] [place] [address] END OF REPORT
--- NOTE | 2019-01-16 14:37 | EC ---
PATIENT:GREG HERNANDEZ DATE OF SERVICE: 01/11/19 SEX: M MEDICAL RECORD: [id number] DATE OF : [birth year] LOCATION:D.M3 D.121 AGE OF PATIENT: 68 ADMISSION DATE: 01/11/19 REFERRING PHYSICIAN: INTERPRETING PHYSICIAN: SILVIA MORROW MD ECHOCARDIOGRAM REPORT ECHO CHARGES 4 ECHO COMPLETE Date: 01/12/19 CLINICAL DIAGNOSIS: CVA HX HTN/STENTS ECHOCARDIOGRAPHIC MEASUREMENTS (adult normal given) AC root (d.<3.7cm) 3.9 cm LV Septum d (<1.2 cm> 1.3 cm Valve Excursion 2.1 cm LV Septum (systole) 1.5 cm Left Atria (s.<4.0cm> 4.2 cm LVPW d(<1.2cm) 1.6 cm RV (d.<2.3cm) 3.8 cm LVPW (sytole) 1.7 cm LV diastole(<5.6CM) 5.2 cm MV E-F(>70mm/sec) cm LV systole 4.1 cm LVOT Diameter 1.7 cm MV exc.(>10mm) 1.5 cm Est.ejection fraction (50-75%) % DOPPLER: LVIT cm/sec A 72.0 cm/sec E 38.0 cm/sec LA cm/sec RVSP 31 mmHg LVOT 88 cm/sec AOP1/2T m/s Asc. Ao 124 cm/sec RVOT 74 cm/sec RA cm/sec PA 103 cm/sec AV Gradient Peak 6.16 mmHg AV Mean 3.28 mmHg AV Area 2.0 cm MV Gradient Peak 2.57 mmHg MV Mean 1.28 mmHg MV Area cm COMMENTS: Associate Material Handler: 2 MARTHA NICHOLS Turkey Farmer: 1 Dr. Morrow TAPE# PACS Pericardial Effusion N DATE OF SERVICE: FINDINGS: 1. Left ventricular chamber size is within normal limits. Left ventricular systolic function is normal. Overall ejection fraction estimated at 55% to 60%. 2. Left atrium, right atrium, and right ventricle chamber sizes are mildly dilated. Left atrium measures 4.2 cm. 3. Valvular structures have normal structure and motion. 4. Doppler interrogation reveals mild aortic insufficiency, mild mitral regurgitation, mild tricuspid regurgitation, no other valvular insufficiency or ECHOCARDIOGRAM REPORT [id number] GREG HERNANDEZ stenosis. Pulmonary systolic pressure is estimated at 31 mmHg. 5. No evidence of pericardial effusion or left ventricular thrombus. TRANSINT:[id number] Voice Confirmation ID: [id number] DOCUMENT ID: [id number] SILVIA MORROW MD at 1437 CC: [id number] DICTATION DATE: 01/12/19 1249 RUBBER VULCANIZING MACHINE OPERATOR: 01/12/19 1305 DIS IN 01/12/19 [place] [id number] [place] [id number]
== END 2019-01-12 17:17 | disposition home or self-care (01) | DRG 64 ==
LOC: D.ER 09:15 → D.M3 12:26
PROVIDERS: Emergency Medicine; ADMIT Emergency Medicine; ATTEND Emergency Medicine
DX: I63.9 Cerebral infarction, unspecified (principal); G93.41 Metabolic encephalopathy; F17.213 Nicotine dependence, cigarettes, with withdrawal; G81.91 Hemiplegia, unspecified affecting right dominant side; R40.2243 Coma scale, best verbal response, confused conversation, at hospital admission; R40.2363 Coma scale, best motor response, obeys commands, at hospital admission; R40.2143 Coma scale, eyes open, spontaneous, at hospital admission; E11.65 Type 2 diabetes mellitus with hyperglycemia; I10 Essential (primary) hypertension; J44.9 Chronic obstructive pulmonary disease, unspecified; F32.9 Major depressive disorder, single episode, unspecified; Z89.611 Acquired absence of right leg above knee; H53.8 Other visual disturbances